=== PATIENT | male | born 1990 | race Caucasian/White ===

== ENCOUNTER 2021-03-17 21:02 | Inpatient (IN) | payer BC ==
[2021-03-17] MEDS ORDERED: Morphine 4 MG/ML VIAL SLOW IVP PRN ×2 (22:37→22:41)
[2021-03-17] MEDS ORDERED: Acetaminophen 325 MG TAB PO PRN (22:37)
[2021-03-17] MEDS ORDERED: Dextrose 5% in Water 1,000 ML IV PRN (22:37)
[2021-03-17] MEDS ORDERED: hydrALAZINE 20 MG/ML VIAL SLOW IVP PRN (22:37)
[2021-03-17] MEDS ORDERED: Ondansetron PF 4 MG/2 ML Vial IVP PRN (22:37)
[2021-03-17] MEDS ORDERED: Promethazine HCl 25 MG/ML VIAL IM PRN (22:37)
[2021-03-17] MEDS ORDERED: Dextrose 50% Abboject 50 ML SYRINGE SLOW IVP PRN (22:37)
[2021-03-17] MEDS: D5 1/2 NS w/20 mEq KCL 1,000 ML IV SCH (23:06)
[2021-03-17] MEDS: Piperacillin/Tazobactam 3.375 GM in Sodium Chloride 0.9% 100 ML IVPB SCH (23:08)
[2021-03-17 23:24] VITALS: BMI 24.7
[2021-03-18] MEDS ORDERED: Pantoprazole 40 MG VIAL IVP SCH (00:15)
[2021-03-18] MEDS: Ketorolac Tromethamine 30 MG/ML VIAL IVP PRN ×2 (01:47→20:57)
[2021-03-18 08:23] LABS: #Eosinphils 0.1 thou/uL (0.0-0.7); #Lymphocytes 1.4 thou/uL (1.20-3.40); %Basophils 0.2 % (0.0-1.0); %Eosinophils 1.2 % (0.0-10.0); %Lymphocytes 15.2 % (21.0-51.0); %Neutrophils 73.3 % (42.0-75.0); Hemoglobin 13.2 g/dL (14.0-18.0); Mean Corpuscular HGB CONC 33.9 g/dL (32.0-36.0); Mean Corpuscular Hemoglobin 27.2 pg (27.0-31.0); Mean Corpuscular Volume 80.2 fL (78.0-98.0); Mean Platelet Volume 7.2 fL (7.4-10.4); Platelet Count 239 thou/uL (130-400); RBC Distribution Width 11.6 % (11.5-14.5); Red Blood Cell (RBC) Count 4.87 mill/uL (4.70-6.10); White Blood Cell (WBC) Count 9.5 thou/uL (4.8-10.8)
[2021-03-18] MEDS: D5 1/2 NS w/20 mEq KCL 1,000 ML IV SCH ×2 (08:24→16:24)
[2021-03-18] MEDS: Pantoprazole 40 MG VIAL IVP SCH ×2 (08:24→20:47)
[2021-03-18] MEDS: Piperacillin/Tazobactam 3.375 GM in Sodium Chloride 0.9% 100 ML IVPB SCH ×2 (08:25→16:28)
[2021-03-18] MEDS: Famotidine 20 MG TAB PO SCH ×2 (08:28→19:50)
[2021-03-18 08:38] LABS: Anion Gap 12 mmol/L (10-20); BUN (Urea Nitrogen) 10 mg/dL (8.9-20.6); Calc. Creatinine Clearance 110 mL/min (70-130); Carbon Dioxide 26 mmol/L (22-29); Chloride 105 mmol/L (98-107); Glucose 84 mg/dL (70-105); Sodium 139 mmol/L (136-145)
[2021-03-18] MEDS: Famotidine/PF 20 mg/2ml Vial SLOW IVP SCH ×2 (12:52→19:51)
[2021-03-19] MEDS: Piperacillin/Tazobactam 3.375 GM in Sodium Chloride 0.9% 100 ML IVPB SCH ×2 (00:41→09:03)
[2021-03-19] MEDS: D5 1/2 NS w/20 mEq KCL 1,000 ML IV SCH ×2 (00:41→09:09)
[2021-03-19 08:48] VITALS: BP 113/71; TEMP 97.8
[2021-03-19] MEDS: Famotidine 20 MG TAB PO SCH (09:03)
[2021-03-19] MEDS: Pantoprazole 40 MG VIAL IVP SCH (09:03)
[2021-03-19] MEDS: Famotidine/PF 20 mg/2ml Vial SLOW IVP SCH (09:10)
[2021-03-19] MEDS ORDERED: Acetaminophen 500 MG TAB PO PRN (10:45)
[2021-03-19] MEDS ORDERED: Ibuprofen 600 MG TAB PO PRN (10:45)
[2021-03-19] MEDS ORDERED: Amoxicillin/Potassium Clav 875 MG TAB PO SCH (21:00)
== END 2021-03-19 11:16 | disposition home or self-care (01) | DRG 373 ==
LOC: SJJU 22:05
PROVIDERS: ADMIT Surgery; ATTEND Surgery
DX: K35.33 Acute appendicitis with perforation, localized peritonitis, and gangrene, with abscess (principal); Z20.822 Contact with and (suspected) exposure to COVID-19
CPT/HCPCS: 36415; 80048; 85025; C9113; J1885; J2270; J2405; J2543; J3480; J3490

== ENCOUNTER 2021-06-23 09:45 | Outpatient (CLI) | payer BC | END 2021-06-23 09:46 | disposition home or self-care (01) | LOC: MRI 09:45 | PROVIDERS: ATTEND Internal Medicine Gastroenterology | DX: K52.9 Noninfective gastroenteritis and colitis, unspecified (principal) | CPT/HCPCS: 74183; J1610 ==

== ENCOUNTER 2021-08-25 09:30 | Inpatient (IN) | payer BC ==
[2021-08-25 11:21] VITALS: BMI 24.3
[2021-08-30] MEDS ORDERED: fentaNYL Citrate/PF 100 MCG/2 ML SYRINGE ONE ×3 (06:16→11:08)
[2021-08-30] MEDS ORDERED: SUGAMMADEX SODIUM 200 MG/2 ML VIAL ONE (06:16)
[2021-08-30] MEDS ORDERED: Lidocaine 1% (PF) 30 ML VIAL ONE (06:41)
[2021-08-30] MEDS ORDERED: Fentanyl 100 MCG/2 ML VIAL ONE ×2 (06:41→07:03)
[2021-08-30] MEDS ORDERED: Midazolam HCl 2 mg/2 ml Vial ONE (06:41)
[2021-08-30] MEDS ORDERED: Lidocaine 1% w/Epinephrine 1:100K 20 ML VIAL ONE (06:53)
[2021-08-30] MEDS ORDERED: Bupivacaine 0.25% HCL 30 ML VIAL ONE (06:53)
[2021-08-30] MEDS ORDERED: cefOXitin 2 GM VIAL ONE ×2 (07:22→09:35)
[2021-08-30] MEDS ORDERED: Sodium Chloride 0.9% 100 ML ONE (07:22)
[2021-08-30] MEDS ORDERED: Ketamine 50 MG/ML (10ML VIAL) ONE (07:32)
[2021-08-30] MEDS ORDERED: PROPOFOL 200 MG/20 ML VIAL ONE (07:38)
[2021-08-30] MEDS ORDERED: Dexamethasone 20 MG/5 ML VIAL ONE (07:38)
[2021-08-30] MEDS ORDERED: Glycopyrrolate 0.2 MG/ML 5 ML SYRINGE ONE (07:38)
[2021-08-30] MEDS ORDERED: Ketorolac Tromethamine 30 MG/ML VIAL ONE (07:38)
[2021-08-30] MEDS ORDERED: Lidocaine 1% PF 5 ML VIAL ONE (07:38)
[2021-08-30] MEDS ORDERED: Rocuronium Bromide 10 MG/ML (10ML VIAL) ONE (07:38)
[2021-08-30] MEDS ORDERED: Ondansetron PF 4 MG/2 ML Vial ONE ×2 (07:38→10:15)
[2021-08-30] MEDS ORDERED: Promethazine HCl 25 MG/ML VIAL IM PRN ×2 (08:37→09:48)
[2021-08-30] MEDS ORDERED: Promethazine HCl 25 MG/ML VIAL IVPB PRN (08:37)
[2021-08-30] MEDS ORDERED: Ondansetron HCl/PF 4 MG/2 ML Vial IVP PRN (08:37)
[2021-08-30] MEDS ORDERED: Meperidine HCl/PF 25 MG/ML VIAL SLOW IVP PRN (08:37)
[2021-08-30] MEDS ORDERED: hydrALAZINE 20 MG/ML VIAL SLOW IVP PRN (09:48)
[2021-08-30] MEDS ORDERED: Ondansetron PF 4 MG/2 ML Vial IVP PRN (09:48)
[2021-08-30] MEDS ORDERED: Dexamethasone 4 mg/ml Vial ONE (10:43)
[2021-08-30] MEDS ORDERED: Bupivacaine PF 0.5% 30 ML VIAL ONE (10:43)
[2021-08-30] MEDS: D5 1/2 NS w/20 mEq KCL 1,000 ML IV SCH ×2 (11:46→20:42)
[2021-08-30] MEDS: HYDROcodone/Acetaminophen 7.5/325 mg Tablet PO PRN ×4 (12:07→22:18)
[2021-08-30] MEDS: Fentanyl 100 MCG/2 ML VIAL SLOW IVP PRN (12:15)
[2021-08-30] MEDS: cefOXitin Sodium 1 GM in Sodium Chloride 0.9% 100 ML IVPB SCH (17:58)
[2021-08-30] MEDS: Famotidine 20 MG TAB PO SCH (20:42)
[2021-08-30] MEDS: Tobramycin/Dexamethasone Ophth Oint 3.5 GM TUBE L EYE SCH (20:43)
[2021-08-30] MEDS: Famotidine/PF 20 mg/2ml Vial SLOW IVP SCH (20:44)
[2021-08-31] MEDS: D5 1/2 NS w/20 mEq KCL 1,000 ML IV SCH ×2 (02:17→13:47)
[2021-08-31] MEDS: HYDROcodone/Acetaminophen 7.5/325 mg Tablet PO PRN ×6 (02:17→22:29)
[2021-08-31] MEDS: cefOXitin Sodium 1 GM in Sodium Chloride 0.9% 100 ML IVPB SCH (02:17)
[2021-08-31 06:42] LABS: #Monocytes 1.1 thou/uL (0.11-0.59); #Neutrophils 10.5 thou/uL (1.40-6.50); %Basophils 0.1 % (0.0-1.0); %Eosinophils 0.2 % (0.0-10.0); %Lymphocytes 14.6 % (21.0-51.0); %Monocytes 7.8 % (0.0-10.0); %Neutrophils 77.3 % (42.0-75.0); Hemoglobin 11.8 g/dL (14.0-18.0); Mean Corpuscular HGB CONC 34.8 g/dL (32.0-36.0); Mean Corpuscular Volume 86.2 fL (78.0-98.0); Mean Platelet Volume 7.5 fL (7.4-10.4); Platelet Count 210 thou/uL (130-400); RBC Distribution Width 11.3 % (11.5-14.5); Red Blood Cell (RBC) Count 3.95 mill/uL (4.70-6.10); White Blood Cell (WBC) Count 13.5 thou/uL (4.8-10.8)
[2021-08-31 07:08] LABS: Anion Gap 9 mmol/L (10-20); BUN (Urea Nitrogen) 5 mg/dL (8.9-20.6); Calc. Creatinine Clearance 126 mL/min (70-130); Calcium 8.8 mg/dL (7.8-10.44); Carbon Dioxide 27 mmol/L (22-29); Chloride 107 mmol/L (98-107); Estimated GFR 117; Glucose 128 mg/dL (70-105); Potassium 4.2 mmol/L (3.5-5.1); Sodium 139 mmol/L (136-145)
[2021-08-31] MEDS: Fentanyl 100 MCG/2 ML VIAL SLOW IVP PRN (07:54)
[2021-08-31] MEDS: Tobramycin/Dexamethasone Ophth Oint 3.5 GM TUBE L EYE SCH ×2 (09:17→21:01)
[2021-08-31] MEDS: Enoxaparin Sodium 40 MG/0.4 ML SYRINGE SC SCH (09:17)
[2021-08-31] MEDS: Famotidine 20 MG TAB PO SCH ×2 (09:17→21:00)
[2021-08-31] MEDS: Famotidine/PF 20 mg/2ml Vial SLOW IVP SCH ×2 (09:18→20:58)
[2021-08-31] MEDS ORDERED: Acetaminophen 325 MG TAB PO PRN (09:44)
[2021-08-31] MEDS ORDERED: D5 1/2 NS w/20 mEq KCL 1,000 ML IV SCH (11:14)
[2021-09-01] MEDS: HYDROcodone/Acetaminophen 7.5/325 mg Tablet PO PRN ×2 (04:50→08:56)
[2021-09-01] MEDS: Enoxaparin Sodium 40 MG/0.4 ML SYRINGE SC SCH (08:49)
[2021-09-01] MEDS: Famotidine 20 MG TAB PO SCH (08:50)
[2021-09-01] MEDS: Tobramycin/Dexamethasone Ophth Oint 3.5 GM TUBE L EYE SCH (08:58)
[2021-09-01] MEDS: Famotidine/PF 20 mg/2ml Vial SLOW IVP SCH (08:58)
[2021-09-01 12:20] VITALS: BP 109/71; TEMP 98.1
== END 2021-09-01 12:15 | disposition home or self-care (01) | DRG 331 ==
LOC: SURG A 08-30 06:09 → EDSTATUS 08-30 09:30 → SJJU 08-30 11:49
PROVIDERS: ADMIT Surgery; ATTEND Surgery
PROC: 0DBF4ZZ Excision of Right Large Intestine, Percutaneous Endoscopic Approach (ICD-10-PCS; principal; 2021-08-30)
PROC: 8E0W4CZ Robotic Assisted Procedure of Trunk Region, Percutaneous Endoscopic Approach (ICD-10-PCS; 2021-08-30)
PROC: 3E0T3BZ Introduction of Anesthetic Agent into Peripheral Nerves and Plexi, Percutaneous Approach (ICD-10-PCS; 2021-08-30)
DX: K50.10 Crohn's disease of large intestine without complications (principal); K63.89 Other specified diseases of intestine; Z20.822 Contact with and (suspected) exposure to COVID-19
CPT/HCPCS: 36415; 36416; 80048; 85025; 88307; J0694; J1100; J1650; J1885; J2001; J2250; J2405; J2550; J2704; J2710; J3010; J3480; J3490; S0020

== ENCOUNTER 2021-08-25 09:34 | Outpatient (CLI) | payer BC ==
[2021-08-25 10:42] LABS: #Basophils 0.1 10x3/uL (0.0-0.2); #Eosinphils 0.1 10x3/uL (0.0-0.5); #Monocytes 0.5 10x3/uL (0.0-1.1); #Neutrophils 3.5 10x3/uL (1.5-8.4); %Basophils 0.8 % (0.0-2.0); %Eosinophils 1.6 % (0.0-6.0); %Lymphocytes 33.3 % (18.0-47.0); %Monocytes 7.7 % (0.0-10.0); %Neutrophils 56.1 % (40.0-75.0); Hemoglobin 14.2 g/dL (13.5-17.5); Mean Corpuscular HGB CONC 35.4 g/dL (32.0-36.0); Mean Corpuscular Hemoglobin 28.1 pg (27.0-33.0); Mean Corpuscular Volume 79.4 fl (81.2-95.1); Mean Platelet Volume 9.6 fl (7.4-10.4); Platelet Count 263 10x3/uL (150-450); RBC Distribution Width 11.9 % (11.5-14.5); Red Blood Cell (RBC) Count 5.05 10x6/uL (4.32-5.72); White Blood Cell (WBC) Count 6.2 10x3/uL (3.5-10.5)
[2021-08-25 11:10] LABS: Anion Gap 14 mmol/L (10-20); BUN (Urea Nitrogen) 17 mg/dL (8.9-20.6); Calc. Creatinine Clearance 0 mL/min (70-130); Calcium 9.9 mg/dL (7.8-10.44); Carbon Dioxide 27 mmol/L (22-29); Chloride 104 mmol/L (98-107); Estimated GFR 97; Glucose 84 mg/dL (70-105); Potassium 4.5 mmol/L (3.5-5.1); Sodium 140 mmol/L (136-145)
[2021-08-25 14:13] LABS: Hemoglobin A1c 4.8 % (4.0-6.0)
== END 2021-08-25 09:35 | disposition home or self-care (01) ==
LOC: LABBT 09:34
PROVIDERS: ATTEND Surgery
DX: Z01.812 Encounter for preprocedural laboratory examination (principal); K50.90 Crohn's disease, unspecified, without complications; Z20.822 Contact with and (suspected) exposure to COVID-19
CPT/HCPCS: 80048; 83036; 85025; 87811